=== PATIENT | male | born 1965 | race Hispanic/Latino ===

== ENCOUNTER → 2020-09-01 | Outpatient (CLI) | payer BC | END | disposition home or self-care (01) | LOC: RAH 07:55 | PROVIDERS: ATTEND Internal Medicine | DX: N28.1 Cyst of kidney, acquired (principal); I70.0 Atherosclerosis of aorta; K76.0 Fatty (change of) liver, not elsewhere classified; N40.0 Benign prostatic hyperplasia without lower urinary tract symptoms; K42.9 Umbilical hernia without obstruction or gangrene | CPT/HCPCS: 76700 ==

== ENCOUNTER 2020-11-26 08:24 | Day surgery (SDC) | payer OTHER ==
[2020-11-19 09:44] LABS: BASOPHILS % (AUTO) 0.7 % (0.0-5.0); EOSINOPHILS % (AUTO) 4.9 % (0.0-8.0); HEMATOCRIT 33.3 % (42-54); MEAN CORPUSCULAR HEMOGLOBIN 25.3 pg (27.0-33.0); MEAN CORPUSCULAR HGB CONC 31.2 g/dL (32.0-36.0); MONOCYTES % (AUTO) 8.2 % (3.0-13.0); PLATELET COUNT (AUTO) 238 K/uL (130-400); RED BLOOD CELL COUNT(AUTO) 4.11 MIL/uL (4.50-6.20); WHITE BLOOD COUNT (AUTO) 4.3 K/uL (4.8-10.8)
[2020-11-19 09:52] LABS: CREATININE 0.9 mg/dL (0.5-1.5); POTASSIUM 3.4 mmol/L (3.5-5.1)
[2020-11-25 11:55] VITALS: BP 168/89
[2020-11-26] VITALS (18 sets, daily range): BP systolic 42–160; BP diastolic 67–102
[~2020-11-26] VITALS: Ht 177.8 cm; Wt 108.3 kg
[~2020-11-26 08:24] MED LIST: AMLO2.5T5 PO; CEFAZOLIN SODIUM 1 GM VIAL IVP SCH; HYDR25TA PO; LOSA100T58 PO; TAMS-1 PO
[2020-11-26] MEDS ORDERED: LACTATED RINGERS 1000ML 1,000 ML IV ONE (08:47)
[2020-11-26] MEDS ORDERED: AMLO5TAB4 PO (09:11)
[2020-11-26] MEDS ORDERED: SUCCINYLCHOLINE CHLORIDE 20 MG/ML 10 ML VIAL ONE (10:02)
[2020-11-26] MEDS ORDERED: LIDOCAINE PF 100MG/5ML (2%) SYRINGE 5ML ONE (10:02)
[2020-11-26] MEDS ORDERED: PROPOFOL 10 MG/ML 20ML VIAL IV ONE (10:02)
[2020-11-26] MEDS ORDERED: FENTANYL CITRATE PF 50 MCG/1 ML 2ML VIAL ONE (10:03)
[2020-11-26] MEDS ORDERED: ROCURONIUM 10MG/1ML SYR 10 MG/ML ML ONE (10:03)
[2020-11-26] MEDS ORDERED: EPHEDRINE SULFATE 50 MG/ML AMPULE ONE (11:01)
[2020-11-26] MEDS ORDERED: GLYCOPYRROLATE 1 MG/5 ML SYRINGE ONE (11:03)
[2020-11-26] MEDS ORDERED: NEOSTIGMINE 5MG/5ML SYR IV ONE (11:20)
[2020-11-26] MEDS ORDERED: KETOROLAC 30MG VIAL (30MG/ML) ONE (11:21)
[2020-11-26] MEDS ORDERED: ONDANSETRON 4MG INJ ONE ×2 (11:21→12:47)
[2020-11-26] MEDS ORDERED: MEPERIDINE-PF 25 MG/ML SYG ONE ×2 (11:55→12:07)
== END 2020-11-26 14:00 | disposition home or self-care (01) ==
LOC: DAH 08:24
PROVIDERS: ATTEND Surgery
DX: K43.9 Ventral hernia without obstruction or gangrene (principal); K42.9 Umbilical hernia without obstruction or gangrene; Z20.822 Contact with and (suspected) exposure to COVID-19; I10 Essential (primary) hypertension; K21.9 Gastro-esophageal reflux disease without esophagitis; M19.90 Unspecified osteoarthritis, unspecified site; Z82.49 Family history of ischemic heart disease and other diseases of the circulatory system; Z83.3 Family history of diabetes mellitus
CPT/HCPCS: 36415; 49560; 49568; 49585; 80048; 85025; 87635; A4215; A4221; A4222; A4223; A4452; A4600; A4663; A4930; A6260; C1781; C9803; G0168; J0330; J0690; J1885; J2001; J2175 ×2; J2405 ×2; J2704; J2710; J3010; J3490 ×2; J7120

== ENCOUNTER 2021-02-21 07:00 | Day surgery (SDC) | payer OTHER ==
[2021-02-15 10:30] VITALS: BP 185/101
[2021-02-15 10:38] LABS: BASOPHILS % (AUTO) 0.5 % (0.0-5.0); EOSINOPHILS % (AUTO) 5.4 % (0.0-8.0); HEMATOCRIT 32.5 % (42-54); LYMPHOCYTES % (AUTO) 38.4 % (21.0-51.0); MEAN CORPUSCULAR HEMOGLOBIN 29.3 pg (27.0-33.0); MEAN CORPUSCULAR HGB CONC 33.2 g/dL (32.0-36.0); MEAN CORPUSCULAR VOLUME 88.3 fL (79-99); MONOCYTES % (AUTO) 8.6 % (3.0-13.0); NEUTROPHILS % (AUTO) 46.9 % (40.0-77.0); PLATELET COUNT (AUTO) 166 K/uL (130-400); RED BLOOD CELL COUNT(AUTO) 3.68 MIL/uL (4.50-6.20); RED CELL DISTRIBUTION WIDTH 17.2 % (11.0-15.5); WHITE BLOOD COUNT (AUTO) 4.4 K/uL (4.8-10.8)
[~2021-02-21] VITALS: Ht 177.8 cm; Wt 102.8 kg
[2021-02-21] VITALS (21 sets, daily range): BP systolic 98–169; BP diastolic 67–98
[~2021-02-21 07:00] MED LIST changes: +0.9%NACL 1000ML 1,000 ML IV SCH; -AMLO2.5T5 PO; +AMLO5TAB4 PO
[2021-02-21] MEDS ORDERED: LACTATED RINGERS 1000ML 1,000 ML IV ONE (07:19)
[2021-02-21] MEDS: CEFAZOLIN SODIUM 1 GM VIAL ONE ×2 (07:31→09:03)
[2021-02-21] MEDS ORDERED: LIDOCAINE PF 100MG/5ML (2%) SYRINGE 5ML ONE (07:49)
[2021-02-21] MEDS ORDERED: DEXAMETHASONE SOD PHOSPHATE 10MG/ML 1ML VIAL ONE (07:49)
[2021-02-21] MEDS ORDERED: SUCCINYLCHOLINE 200MG/10ML SYR ONE ×2 (07:49→07:54)
[2021-02-21] MEDS ORDERED: PROPOFOL 10 MG/ML 20ML VIAL IV ONE (07:49)
[2021-02-21] MEDS ORDERED: FENTANYL CITRATE PF 50 MCG/1 ML 2ML VIAL ONE ×2 (07:50→09:43)
[2021-02-21] MEDS ORDERED: MIDAZOLAM HCL 1 MG/ML 2ML VIAL ONE (07:50)
[2021-02-21] MEDS ORDERED: ONDANSETRON 4MG INJ ONE (07:50)
[2021-02-21] MEDS ORDERED: GLYCOPYRROLATE 1 MG/5 ML SYRINGE ONE (07:50)
[2021-02-21] MEDS ORDERED: NEOSTIGMINE 5MG/5ML SYR IV ONE (07:50)
[2021-02-21] MEDS ORDERED: ROCURONIUM 10MG/1ML SYR 10 MG/ML ML ONE ×2 (07:50→10:16)
[2021-02-21] MEDS ORDERED: MEPERIDINE-PF 25 MG/ML SYG ONE ×4 (07:54→11:43)
[2021-02-21] MEDS ORDERED: BUPIVACAINE/PF 0.5% 30ML VIAL ONE (08:40)
[2021-02-21] MEDS ORDERED: PHENYLEPHRINE HCL 10 MG/ML 1ML VIAL IV ONE (09:14)
[2021-02-21] MEDS ORDERED: LIDOCAINE HCL MPF 1% 5ML VIAL ONE (10:51)
[2021-02-21] MEDS ORDERED: KETOROLAC 30MG VIAL (30MG/ML) ONE (10:52)
== END 2021-02-21 13:40 | disposition home or self-care (01) ==
LOC: DAH 07:00
PROVIDERS: ATTEND Surgery
DX: K43.2 Incisional hernia without obstruction or gangrene (principal); Z20.822 Contact with and (suspected) exposure to COVID-19; I10 Essential (primary) hypertension; K21.9 Gastro-esophageal reflux disease without esophagitis; M19.90 Unspecified osteoarthritis, unspecified site; Z82.49 Family history of ischemic heart disease and other diseases of the circulatory system; Z83.3 Family history of diabetes mellitus
CPT/HCPCS: 36415; 49656; 85025; 87635; A4215; A4221; A4222; A4223; A4344; A4600; A4663; A6260; C1781; C9803; G0168; J0330 ×2; J0690; J1100; J1885; J2001; J2175 ×4; J2250; J2370; J2405; J2704; J2710; J3010 ×2; J3490 ×3; J7030; J7120; S2900